=== PATIENT | female | born 1975 | race Caucasian/White ===

== ENCOUNTER 2017-09-24 04:11 | Outpatient (CLI) | payer BC | END 2017-09-24 23:59 | disposition home or self-care (01) | LOC: DIABETIC 04:11 | PROVIDERS: ATTEND Surgery | DX: E66.01 Morbid (severe) obesity due to excess calories (principal); I10 Essential (primary) hypertension; K21.9 Gastro-esophageal reflux disease without esophagitis | CPT/HCPCS: 97802 ==

== ENCOUNTER 2017-10-30 01:36 | Outpatient (CLI) | payer BC | END 2017-10-30 23:59 | disposition home or self-care (01) | LOC: DIABETIC 01:36 | PROVIDERS: ATTEND Surgery | DX: E66.01 Morbid (severe) obesity due to excess calories (principal); Z68.41 Body mass index [BMI] 40.0-44.9, adult; Z71.3 Dietary counseling and surveillance | CPT/HCPCS: 97802 ==

== ENCOUNTER 2017-12-17 00:19 | Outpatient (CLI) | payer BC | END 2017-12-17 23:59 | disposition home or self-care (01) | LOC: DIABETIC 00:19 | PROVIDERS: ATTEND Surgery | DX: Z71.3 Dietary counseling and surveillance (principal); E66.01 Morbid (severe) obesity due to excess calories; K21.9 Gastro-esophageal reflux disease without esophagitis ==

== ENCOUNTER 2020-07-30 22:56 | Emergency (ER) | payer BC ==
[~2020-07-30] VITALS: Ht 172.7 cm; Wt 141.4 kg
[2020-07-31 01:08] VITALS: BP 154/90
== END 2020-07-31 01:18 | disposition home or self-care (01) ==
LOC: ER 22:56
DX: S52.502A Unspecified fracture of the lower end of left radius, initial encounter for closed fracture (principal); X58.XXXA Exposure to other specified factors, initial encounter; Y93.89 Activity, other specified; Y92.89 Other specified places as the place of occurrence of the external cause; Y99.8 Other external cause status
CPT/HCPCS: 29125; 73110; 99283

== ENCOUNTER 2024-04-20 15:07 | Emergency (ER) | payer BC ==
[~2024-04-20] VITALS: Ht 172.7 cm; Wt 193.2 kg
[2024-04-20 16:07] LABS: BASOPHILS # (AUTO) 0.1 X10'3 (0-0.2); BASOPHILS % (AUTO) 0.9 % (0-1); EOSINOPHILS # (AUTO) 0.2 X10'3 (0-0.9); EOSINOPHILS % (AUTO) 1.8 % (0-6); HEMATOCRIT 37.5 % (35.0-45.0); HEMOGLOBIN 12.4 g/dl (12.0-16.0); LYMPHOCYTES # (AUTO) 2.3 X10'3 (1.1-4.8); LYMPHOCYTES % (AUTO) 18.8 % (21-51); MEAN CORPUSCULAR HEMOGLOBIN 24.6 PG (27.0-31.0); MEAN CORPUSCULAR VOLUME 74.6 FL (78-98); MEAN PLATELET VOLUME 7.8 FL (7.4-10.4); MONOCYTES % (AUTO) 8.5 % (2-12); NEUTROPHILS # (AUTO) 8.6 X10'3 (1.8-7.7); PLATELET COUNT 323 X10'3 (140-440); RED BLOOD COUNT 5.03 X10'6 (4.20-5.60); RED CELL DISTRIBUTION WIDTH 15.6 % (11.5-14.5); WHITE BLOOD COUNT 12.3 X10'3 (4.5-11.0)
[2024-04-20 16:21] LABS: ALANINE AMINOTRANSFERASE 29 U/L (12-78); ALBUMIN 3.2 G/DL (3.4-5.0); ALBUMIN/GLOBULIN RATIO 0.7 (1.1-1.5); ALKALINE PHOSPHATASE 69 IU/L (46-116); ANION GAP 6 (8-16); ASPARTATE AMINO TRANSFERASE 23 U/L (10-37); BILIRUBIN,TOTAL 0.4 MG/DL (0.1-1.0); BLOOD UREA NITROGEN 8 MG/DL (7-18); CALCIUM 8.3 MG/DL (8.5-10.1); CHLORIDE 105 MMOL/L (99-107); CREATININE 0.42 MG/DL (0.40-0.90); GLUCOSE 94 MG/DL (70-104); POTASSIUM 4.3 MMOL/L (3.5-5.1); SODIUM 140 MMOL/L (135-145); TOTAL CARBON DIOXIDE 28.6 MMOL/L (24-32); TOTAL PROTEIN 7.7 G/DL (6.4-8.2); eCRCL 167 ML/MIN; eGFR > 90 ML/MIN
[2024-04-20 16:23] LABS: URINE HCG NEGATIVE (NEG)
[2024-04-20] MEDS: oxymetazoline 15 ML nasal spray NS ONE (16:57)
[2024-04-20] MEDS: silver nitrate applicator stick TP ONE ×2 (17:02→17:17)
[2024-04-20 17:31] VITALS: BP 181/99; PULSE 71; RESP 16; TEMP 98.2; O2SAT 99
== END 2024-04-20 17:33 | disposition home or self-care (01) ==
LOC: ER 15:07
DX: R04.0 Epistaxis (principal); Z88.8 Allergy status to other drugs, medicaments and biological substances
CPT/HCPCS: 30901; 36415; 80053; 81025; 85025; 99284

== ENCOUNTER 2024-04-21 12:11 | Emergency (ER) | payer BC ==
[~2024-04-21] VITALS: Ht 172.7 cm; Wt 193.4 kg
[2024-04-21 12:50] VITALS: BP 182/97; PULSE 77; RESP 18; TEMP 97.4; O2SAT 96
== END 2024-04-21 18:43 | disposition home or self-care (01) ==
LOC: ER 12:12
DX: R51.9 Headache, unspecified (principal); R04.0 Epistaxis; Z88.1 Allergy status to other antibiotic agents; Z88.8 Allergy status to other drugs, medicaments and biological substances
CPT/HCPCS: 99281